=== PATIENT | male | born 1970 | race African-American/Black ===

== ENCOUNTER 2025-03-03 06:24 | Day surgery (SDC) | payer BC, OTHER ==
[~2025-03-03 06:24] MED LIST: Sodium Chloride 0.9% 10 ML Syringe FLUSH PRN; Sodium Chloride 0.9% 2.5 ML Syringe FLUSH PRN; cefOXitin 2 GM in Water For Injection, Sterile 20 ML IV SCH
[2025-03-03] MEDS: Lactated Ringers 1,000 ML IV SCH (07:00)
[2025-03-03] MEDS ORDERED: Midazolam 1 MG/ML 2 ML SDV ONE (07:41)
[2025-03-03] MEDS ORDERED: fentaNYL 100 MCG/2 ML SDV ONE (07:41)
[2025-03-03] MEDS ORDERED: Propofol 200 MG/20 ML SDV ONE (07:41)
[2025-03-03] MEDS ORDERED: Dexamethasone 4 MG/ML 5 ML MDV ONE (07:42)
[2025-03-03] MEDS ORDERED: Ondansetron 4 MG/2 ML SDV ONE (07:42)
[2025-03-03] MEDS ORDERED: dexmedeTOMIDine HCl 200 MCG/2 ML SDV ONE (07:46)
[2025-03-03] MEDS ORDERED: Ketorolac 30 MG/ML SDV ONE (07:46)
[2025-03-03] MEDS ORDERED: Ropivacaine 0.5% 5 MG/ML 30 ML SDV ONE (07:49)
[2025-03-03] MEDS ORDERED: Ondansetron 4 MG/2 ML SDV IVPUSH PRN (08:22)
[2025-03-03] MEDS ORDERED: Albuterol 0.083% 2.5 MG/3 ML Neb Soln NEB PRN (08:22)
[2025-03-03] MEDS ORDERED: fentaNYL 50 MCG/ML SDV IVPUSH PRN (08:22)
[2025-03-03] MEDS ORDERED: Naloxone 0.4 MG/ML SDV IVPUSH PRN (08:22)
[2025-03-03] MEDS ORDERED: ePHEDrine 50 MG/ML SDV ONE (08:46)
== END 2025-03-03 11:20 | disposition home or self-care (01) ==
LOC: MW.SDS 06:24
PROVIDERS: ATTEND Surgery
DX: K42.9 Umbilical hernia without obstruction or gangrene (principal); I10 Essential (primary) hypertension; E78.5 Hyperlipidemia, unspecified; K21.9 Gastro-esophageal reflux disease without esophagitis; Z79.899 Other long term (current) drug therapy
CPT/HCPCS: 49591; 64488; A9270; J0665; J0690; J1100; J1885; J2003; J2250; J2704; J2795; J3010; J7120; J2405; J3490